=== PATIENT | female | born 1995 | race Caucasian/White ===

== ENCOUNTER 2019-02-04 10:12 | Emergency (ER) | payer MEDICAID ==
--- NOTE | 2019-02-04 10:35 | EDM.PDOC ---
ED HPI GENERAL MEDICAL PROBLEM - General Chief Complaint: General Stated Complaint: POSSIBLE DEHYDRATION, DIZZINESS, SORE THROAT Time Seen by Provider: 02/04/19 10:35 Source of Information: Reports: Patient History Limitations: Reports: No Limitations - History of Present Illness INITIAL COMMENTS - FREE TEXT/NARRATIVE: 23-year-old female was coming down with a fairly sudden respiratory cold including hoarse voice, cough, nasal congestion and generalized malaise. She feels like she "can't swallow" and is having a hard time breathing. No nausea or vomiting, she was running a fever yesterday that is broke today. No diarrhea. She is concerned she is dehydrated, her mouth feels dry. Onset: Gradual Duration: Day(s): (Over the past 24-48 hours) Associated Symptoms: Reports: Chest Pain, Cough, Fever/Chills, Malaise, Shortness of Breath, Other (Sore throat, nasal congestion) Posterior Neck Pain Score (Numeric/FACES): 6 - Related Data Allergies Allergy/AdvReac Type Severity Reaction Status Date / Time Penicillins Allergy Anaphylactic Verified 02/04/19 10:32 Shock Home Meds: Home Meds NK [No Known Home Meds] 02/04/19 [History] ED ROS GENERAL - Review of Systems Review Of Systems: See Below Constitutional: Reports: Fever, Chills, Malaise HEENT: Reports: Rhinitis, Throat Pain Respiratory: Reports: Shortness of Breath, Cough. Denies: Wheezing Cardiovascular: Reports: Chest Pain GI/Abdominal: Denies: Diarrhea, Nausea, Vomiting : Reports: No Symptoms Skin: Reports: No Symptoms. Denies: Rash Neurological: Denies: Headache ED EXAM, GENERAL - Physical Exam Exam: See Below Exam Limited By: No Limitations General Appearance: Alert, No Apparent Distress (Looks uncomfortable but not distressed) Eye Exam: Bilateral Eye: Normal Inspection Ears: Normal TMs Nose: Clear Rhinorrhea Throat/Mouth: Other (Tonsils are absent, she has mild pharyngeal erythema no exudate) Head: Atraumatic Neck: No: Lymphadenopathy (R), Lymphadenopathy (L) Respiratory/Chest: No Respiratory Distress, Lungs Clear (Even with forced expiration I hear no wheezing) Cardiovascular: Regular Rate, Rhythm. No: Tachycardia GI/Abdominal: Soft, Non-Tender Neurological: Alert, Oriented Psychiatric: Normal Affect, Normal Mood Skin Exam: Warm, Dry Course - Vital Signs Last Recorded V/S: Last Vital Signs Temp 97.5 F 02/04/19 10:33 Pulse 88 02/04/19 10:33 Resp 17 02/04/19 10:33 BP 123/69 02/04/19 10:33 Pulse Ox 95 02/04/19 10:33 - Orders/Labs/Meds Orders: Active Orders 24 hr Category Date Time Status CULTURE STREP A CONFIRMATION [RM] Routine Lab 02/04/19 10:40 Results STREP SCRN A RAPID W CULT CONF [RM] Routine Lab 02/04/19 10:40 Results - Re-Assessments/Exams Free Text/Narrative Re-Assessment/Exam: 02/04/19 10:45 Rapid strep was obtained, despite this very likely being viral. Treatment will depend on result. 02/04/19 11:21 Rapid strep was negative. Patient elected to wait a few days and see how she does, she'll return if worsening such as difficulty breathing. Departure - Departure Time of Disposition: 11:32 Disposition: Home, Self-Care 01 Clinical Impression: Viral URI - Discharge Information Instructions: Upper Respiratory Infection, Adult, [id number] Referrals: PCP,None [Primary Care Provider] - Forms: ED Department Discharge Care Plan Goals: Rest, fluids, throat lozenges may be beneficial. Increase activity as tolerated and return if worsening such as difficulty breathing or persistent vomiting. Small frequent sips of fluid will keep you hydrated. - My Orders Last 24 Hours: My Active Orders 02/04/19 10:40 CULTURE STREP A CONFIRMATION [RM] Routine STREP SCRN A RAPID W CULT CONF [RM] Routine - Assessment/Plan Last 24 Hours: My Active Orders 02/04/19 10:40 CULTURE STREP A CONFIRMATION [RM] Routine STREP SCRN A RAPID W CULT CONF [RM] Routine
== END 2019-02-04 11:32 | disposition home or self-care (01) ==
LOC: JP.ED 10:12
DX: J06.9 Acute upper respiratory infection, unspecified (principal); Z88.0 Allergy status to penicillin
CPT/HCPCS: 87081; 87880-QW; 99284

== ENCOUNTER 2021-03-14 12:25 | Emergency (ER) | payer MEDICAID ==
--- NOTE | 2021-03-14 13:01 | EDM.PDOC ---
ED HPI GENERAL MEDICAL PROBLEM - General Chief Complaint: ENT Problem Stated Complaint: TOOTH PAIN, HIVES DOWN NECK,CHEST,TROUBLE SWALLOW Time Seen by Provider: 03/14/21 12:45 Source of Information: Reports: Patient, Old Records History Limitations: Reports: No Limitations - History of Present Illness INITIAL COMMENTS - FREE TEXT/NARRATIVE: 25 yo female presents with a few days of progressive dental pain. Was getting adequate relief with ibuprofen and acetaminophen until today. Has slight facial swelling she notes. No fever. Is allergic to PCN. Onset: Gradual Onset Date: 03/11/21 Duration: Day(s):, Getting Worse Location: Reports: Face (R maxilla) Quality: Reports: Ache, Throbbing Severity: Moderate Improves with: Reports: Medication Worsens with: Reports: Other (time) Context: Reports: Other (See HPI) Associated Symptoms: Denies: Fever/Chills, Nausea/Vomiting Treatments STEREOTYPE FINISHER: Reports: Acetaminophen, NSAIDS Right Upper Tooth/Teeth Pain Score (Numeric/FACES): 5 - Related Data Allergies Allergy/AdvReac Type Severity Reaction Status Date / Time Penicillins Allergy Anaphylactic Verified 02/04/19 10:32 Shock Home Meds: Home Meds Acetaminophen/HYDROcodone [HYDROcodone-Acetaminophen 5-325 MG *] 1 tab PO Q4H PRN #12 each 03/14/21 [Rx] Clindamycin HCl 300 mg PO TID #30 capsule 03/14/21 [Rx] Phentermine HCl 37.5 mg PO DAILY 03/14/21 [History] Past Medical History - Past Health History Medical/Surgical History: Denies Medical/Surgical History - Past Surgical History HEENT Surgical History: Reports: Adenoidectomy, Tonsillectomy Musculoskeletal Surgical History: Reports: Arthroscopic Knee Social & Family History - Tobacco Use Tobacco Use Status *Q: Never Tobacco User - Caffeine Use Caffeine Use: Reports: Soda, Tea ED ROS ENT - Review of Systems Review Of Systems: See Below Constitutional: Reports: No Symptoms HEENT: Reports: Dental Pain, Other (swelling of cheek) Respiratory: Reports: No Symptoms Cardiovascular: Reports: No Symptoms GI/Abdominal: Reports: No Symptoms : Reports: No Symptoms Musculoskeletal: Reports: No Symptoms Skin: Reports: No Symptoms Neurological: Reports: No Symptoms ED EXAM, ENT - Physical Exam Exam: See Below Exam Limited By: No Limitations General Appearance: Alert, WD/WN, No Apparent Distress Eye Exam: Bilateral Eye: Normal Inspection Ears: Normal External Exam, Normal Canal, Hearing Grossly Normal Nose: Normal Inspection, No Blood Mouth/Throat: Normal Lips, Normal Oropharynx. No: Normal Teeth (R maxillary premolar has the back half broken off, this tooth is tender with percussion. ) Head: Atraumatic, Normocephalic. No: Facial Swelling (not visibly swollen) Neck: Normal Inspection. No: Lymphadenopathy (R), Lymphadenopathy (L) Neurological: Alert, Oriented, CN II-XII Intact, Normal Cognition Psychiatric: Normal Affect, Normal Mood Skin: Warm, Dry, Intact, Normal Color, No Rash Course - Vital Signs Last Recorded V/S: Last Vital Signs Temp 36.6 C 03/14/21 12:41 Pulse 93 03/14/21 12:41 Resp 16 03/14/21 12:41 BP 146/87 H 03/14/21 12:41 Pulse Ox 98 03/14/21 12:41 Departure - Departure Time of Disposition: 12:59 Disposition: Home, Self-Care 01 Condition: Fair Clinical Impression: Pain, dental, Dental infection - Discharge Information *PRESCRIPTION DRUG MONITORING PROGRAM REVIEWED*: Yes *COPY OF PRESCRIPTION DRUG MONITORING REPORT IN PATIENT RORY: Yes Prescriptions: Clindamycin HCl 300 mg PO TID #30 capsule Acetaminophen/HYDROcodone [HYDROcodone-Acetaminophen 5-325 MG *] 1 tab PO Q4H PRN #12 each PRN Reason: Pain Referrals: Olimpia Alba PA-C [Primary Care Provider] - Additional Instructions: Continue the ibuprofen. Substitute hydrocodone for acetaminophen when more pain relief is required. See your dentist [facility]. Contact your primary care provider if needed while waiting for your dental appt. Sepsis Event Note (ED) - Evaluation Sepsis Screening Result: No Definite Risk - Focused Exam Vital Signs: Vital Signs Temp Pulse Resp BP Pulse Ox 03/14/21 12:41 36.6 C 93 16 146/87 H 98 03/14/21 12:38 36.6 C 93 16 146/87 H 98
== END 2021-03-14 13:14 | disposition home or self-care (01) ==
LOC: JP.ED 12:25
DX: K04.7 Periapical abscess without sinus (principal); Z88.0 Allergy status to penicillin
CPT/HCPCS: 99282

== ENCOUNTER 2021-03-17 20:50 | Emergency (ER) | payer MEDICAID ==
[2021-03-17] MEDS ORDERED: HYDROmorphone 1 MG/ML Syringe IM ONE (21:07)
--- NOTE | 2021-03-17 21:13 | EDM.PDOC ---
ED HPI GENERAL MEDICAL PROBLEM - General Chief Complaint: General Stated Complaint: MEDICAL VIA [facility] Time Seen by Provider: 03/17/21 21:00 Source of Information: Reports: Patient, RN Notes Reviewed History Limitations: Reports: No Limitations - History of Present Illness INITIAL COMMENTS - FREE TEXT/NARRATIVE: 25-year-old female presents emergency department day complaint of ongoing dental pain, she was evaluated on 14 March for dental pain she is on clindamycin hydrocodone for pain control. She states she did go to the [facility] dentist today as she is set up with oral surgeon through the [facility] but not until May for extraction of this tooth. She states she cannot take the pain with the hydrocodone is looking for other options. Does feel nauseated sick to her stomach with the pain - Related Data Allergies Allergy/AdvReac Type Severity Reaction Status Date / Time Penicillins Allergy Anaphylactic Verified 02/04/19 10:32 Shock Home Meds: Home Meds Acetaminophen/HYDROcodone [HYDROcodone-Acetaminophen 5-325 MG *] 1 tab PO Q4H PRN #12 each 03/14/21 [Rx] Clindamycin HCl 300 mg PO TID #30 capsule 03/14/21 [Rx] Phentermine HCl 37.5 mg PO DAILY 03/14/21 [History] Past Medical History - Past Health History Medical/Surgical History: Denies Medical/Surgical History - Past Surgical History HEENT Surgical History: Reports: Adenoidectomy, Tonsillectomy Musculoskeletal Surgical History: Reports: Arthroscopic Knee Social & Family History - Caffeine Use Caffeine Use: Reports: Soda, Tea ED ROS GENERAL - Review of Systems Review Of Systems: See Below Constitutional: Reports: No Symptoms HEENT: Reports: Dental Pain Respiratory: Reports: No Symptoms Cardiovascular: Reports: No Symptoms ED EXAM, GENERAL - Physical Exam Exam: See Below Free Text/Narrative:: Mouth mucosa is moist and pink no erythema exudate known soft palate tongue is midline uvula is midline tooth #3 is broken tender to the touch in that area Exam Limited By: No Limitations General Appearance: Alert, WD/WN, No Apparent Distress Course - Vital Signs Last Recorded V/S: Last Vital Signs Temp 98.3 F 03/17/21 20:59 Pulse 78 03/17/21 20:59 Resp 16 03/17/21 20:59 BP 138/80 03/17/21 20:59 Pulse Ox 98 03/17/21 20:59 - Orders/Labs/Meds Meds: Medications Discontinued Medications Generic Name Dose Route Start Last Admin Trade Name Faisal PRN Reason Stop Dose Admin Hydromorphone HCl 1 mg 03/17/21 21:07 Hydromorphone 1 Mg/Ml Syringe IM 03/17/21 21:08 ONETIME ONE Departure - Departure Time of Disposition: 21:12 Disposition: Home, Self-Care 01 Condition: Fair Clinical Impression: Pain, dental - Discharge Information Instructions: Dental Pain Referrals: PCP,None [Primary Care Provider] - Additional Instructions: Use the Percocet as needed for pain control, use Zofran as needed for nausea and vomiting symptoms, please call [facility] tomorrow to get this tooth addressed sooner Sepsis Event Note (ED) - Evaluation Sepsis Screening Result: No Definite Risk - Focused Exam Vital Signs: Vital Signs Temp Pulse Resp BP Pulse Ox 03/17/21 20:59 98.3 F 78 16 138/80 98 - Assessment/Plan Plan: Assessment Acuity = acute Site and laterality = dental pain tooth #3 Etiology = multiple caries broken tooth Manifestations = none Location of injury = Home Lab values = none Plan Prescription written for Percocet 5/325 1 tab p.o. 3 times daily as needed total #10 combination Zofran 4 mg ODT 1 tab p.o. 3 times daily as needed total #5 she is going call tomorrow to find dentist that will be willing to work with her and set up a payment plan This note was dictated using [employer] voice recognition software please call with any questions on syntax or grammar.
== END 2021-03-17 21:54 | disposition home or self-care (01) ==
LOC: JP.ED 20:50
DX: K08.89 Other specified disorders of teeth and supporting structures (principal); Z88.0 Allergy status to penicillin
CPT/HCPCS: 96372; 99283; J1170

== ENCOUNTER 2022-06-14 08:41 | Emergency (ER) | payer MEDICAID | END 2022-06-14 13:04 | disposition home or self-care (01) | LOC: JP.ED 08:41 | DX: M72.2 Plantar fascial fibromatosis (principal); Z88.0 Allergy status to penicillin | CPT/HCPCS: 73630-26-RT; 73630-RT; 99282; 99283 ==

== ENCOUNTER 2023-07-14 20:39 | Emergency (ER) | payer MEDICAID | END 2023-07-14 23:47 | disposition home or self-care (01) | LOC: JP.ED 20:39 | DX: J06.9 Acute upper respiratory infection, unspecified (principal); E66.9 Obesity, unspecified; Z88.0 Allergy status to penicillin; Z86.19 Personal history of other infectious and parasitic diseases; Z68.39 Body mass index [BMI] 39.0-39.9, adult | CPT/HCPCS: 87651-QW; 99283 ==

== ENCOUNTER 2025-03-07 23:41 | Emergency (ER) | payer MEDICAID | END 2025-03-08 01:24 | disposition home or self-care (01) | LOC: JP.ED 23:41 | DX: S86.912A Strain of unspecified muscle(s) and tendon(s) at lower leg level, left leg, initial encounter (principal); Z88.0 Allergy status to penicillin; W10.8XXA Fall (on) (from) other stairs and steps, initial encounter | CPT/HCPCS: 73562-26-LT; 73562-LT; 99283 ==

== ENCOUNTER 2025-04-04 06:05 | Emergency (ER) | payer MEDICAID ==
[2025-04-04 07:03] LABS: CORONAVIRUS COVID-19 NAA NEGATIVE (NEGATIVE); INFLUENZA A NAA POSITIVE (NEGATIVE); INFLUENZA B NAA NEGATIVE (NEGATIVE); RESPIRATORY SYNCYTIAL VIR NAA NEGATIVE (NEGATIVE)
== END 2025-04-04 07:21 | disposition home or self-care (01) ==
LOC: JP.ED 06:05
DX: J10.1 Influenza due to other identified influenza virus with other respiratory manifestations (principal); E66.9 Obesity, unspecified; J45.909 Unspecified asthma, uncomplicated; Z79.899 Other long term (current) drug therapy; Z88.0 Allergy status to penicillin; Z68.39 Body mass index [BMI] 39.0-39.9, adult
CPT/HCPCS: 87637; 99283; A9270